=== PATIENT | male | born 1990 | race Two or more races ===

== ENCOUNTER 2019-10-05 13:59 | Emergency (ER) | payer OTHER ==
[~2019-10-05] VITALS: Ht 170.2 cm; Wt 74.8 kg
[2019-10-05] MEDS ORDERED: HYDROcodone/APAP 5/325 TABLET PO ONE (15:00)
[2019-10-05] MEDS ORDERED: HYDROcodone/APAP 5/325 TABLET ONE (15:11)
--- NOTE | 2019-10-05 15:18 | NUR ---
PT MEDICATED PER EMAR. RESTING ON GURNEY, VSS, AWAITING RESULTS.
[2019-10-05 15:50] VITALS: BP 136/83
--- NOTE | 2019-10-05 15:50 | NUR ---
Patient given discharge instructions and they have confirmed that they understand the instructions. Patient ambulatory with steady gait.
== END 2019-10-05 15:51 ==
LOC: ED 15:30
DX: S43.101A Unspecified dislocation of right acromioclavicular joint, initial encounter (principal); S80.01XA Contusion of right knee, initial encounter; V87.8XXA Person injured in other specified noncollision transport accidents involving motor vehicle (traffic), initial encounter; Y93.89 Activity, other specified; Y92.828 Other wilderness area as the place of occurrence of the external cause; Y99.8 Other external cause status
CPT/HCPCS: 99284